=== PATIENT | female | born 1975 | race Caucasian/White ===

== ENCOUNTER 2021-06-08 21:55 | Emergency (ER) | payer MEDICAID, OTHER ==
[~2021-06-08] VITALS: Ht 157.5 cm; Wt 59.0 kg
[2021-06-08 22:04] VITALS: BP 177/95
== END 2021-06-09 03:15 | disposition left against medical advice (07) ==
LOC: ER 21:55
DX: R07.9 Chest pain, unspecified (principal); R06.02 Shortness of breath; Z53.21 Procedure and treatment not carried out due to patient leaving prior to being seen by health care provider
CPT/HCPCS: 93005

== ENCOUNTER 2021-07-06 09:04 | Emergency (ER) | payer MEDICAID, OTHER ==
[~2021-07-06] VITALS: Ht 162.6 cm; Wt 59.0 kg
[2021-07-06 09:07] VITALS: BP 156/91
== END 2021-07-06 10:12 | disposition left against medical advice (07) ==
LOC: ER 09:04
DX: J02.9 Acute pharyngitis, unspecified (principal); R05.9 Cough, unspecified; Z53.21 Procedure and treatment not carried out due to patient leaving prior to being seen by health care provider

== ENCOUNTER → 2021-12-21 00:03 | Emergency (ER) | payer MEDICAID | END | disposition left against medical advice (07) | LOC: ER 00:03 | DX: I10 Essential (primary) hypertension (principal); Z53.21 Procedure and treatment not carried out due to patient leaving prior to being seen by health care provider ==

== ENCOUNTER 2022-02-08 00:24 | Emergency (ER) | payer MEDICAID ==
[~2022-02-08] VITALS: Ht 162.6 cm; Wt 59.0 kg
[2022-02-08 01:33] VITALS: BP 180/110
== END 2022-02-08 04:34 | disposition left against medical advice (07) ==
LOC: EDUNIT# 00:24 → ER 00:24 → EDBD 00:24 → ER 04:34
DX: F43.9 Reaction to severe stress, unspecified (principal); Z53.21 Procedure and treatment not carried out due to patient leaving prior to being seen by health care provider

== ENCOUNTER 2022-02-08 08:08 | Emergency (ER) | payer MEDICAID ==
[~2022-02-08] VITALS: Ht 160 cm; Wt 55.9 kg
[2022-02-08 08:20] VITALS: BP 190/90
[2022-02-08 09:44] LABS: Alcohol, Urine < 3.0 mg/dL (0-10); Amphetamine Screen, Urine NEGATIVE (NEGATIVE); Barbiturate Scree,Urine NEGATIVE (NEGATIVE); Benzodiazephine Screen, Urine NEGATIVE (NEGATIVE); Cannabinoid Screen, Urine NEGATIVE (NEGATIVE); Cocaine Screen, Urine NEGATIVE (NEGATIVE); Opiate Scree,Urine NEGATIVE (NEGATIVE); Phencyclidine Screen, Urine NEGATIVE (NEGATIVE)
[2022-02-08 09:51] LABS: Basophils # (auto) 0 10 ^3/uL (0-0.2); Basophils % (auto) 0.9 % (0.0-2.0); Hemoglobin 9.4 g/dL (12.2-16.2); Monocytes # (auto) 0.3 10 ^3/uL (0-1.3); Neutrophils # (auto) 3.7 10 ^3/uL (1.6-8.6)
[2022-02-08 09:53] LABS: Eosinophils # (auto) 0 10 ^3/uL (0-0.8); Eosinophils % (auto) 0.9 % (0.0-7.0); Hematocrit 32.5 % (36.0-46.0); Lymphocytes % (auto) 19.8 % (10.0-50.0); Mean Corpuscular Hemoglobin 17.7 pg (28.0-32.0); Mean Corpuscular Hgb Conc. 28.8 g/dL (32.0-36.0); Mean Corpuscular Volume 61.5 fL (80.0-100.0); Neutrophils % (auto) 72.4 % (37.0-80.0); Red Blood Cells 5.28 10^6/uL (4.0-5.20); Red Cell Distribution Width 20.5 % (11.8-14.3); White Blood Cell 5.1 10^3/uL (4.4-10.8)
[2022-02-08 09:59] LABS: Urine Bacteria NONE SEEN /hpf (None Seen); Urine Blood Negative /uL (Negative); Urine Specific Gravity 1.037 (1.001-1.035); Urine WBC 2 /hpf (0 - 5)
[2022-02-08 10:07] LABS: Albumin 3.3 g/dL (3.4-5.0); Calcium 8.7 mg/dL (8.5-10.1); Potassium 3.2 mmol/L (3.5-5.1)
[2022-02-08 10:10] LABS: BUN/Creatinine Ratio 19.8; Bilirubin, Total 0.4 mg/dL (0.2-1.0); Total Protein 6.9 g/dL (6.4-8.2)
== END 2022-02-09 07:42 | disposition left against medical advice (07) ==
LOC: ER 08:08
DX: R45.851 Suicidal ideations (principal); F32.9 Major depressive disorder, single episode, unspecified; F41.9 Anxiety disorder, unspecified; F17.210 Nicotine dependence, cigarettes, uncomplicated; Z20.822 Contact with and (suspected) exposure to COVID-19
CPT/HCPCS: 36415; 80053; 80307; 81001; 81025; 85025

== ENCOUNTER 2022-06-05 23:26 | Emergency (ER) | payer MEDICAID ==
[~2022-06-05] VITALS: Ht 165.1 cm; Wt 70.0 kg
[2022-06-05 23:35] VITALS: BP 168/100
[2022-06-06 00:02] LABS: Basophils # (auto) 0.1 10 ^3/uL (0-0.2); Basophils % (auto) 1.2 % (0.0-2.0); Eosinophils # (auto) 0.1 10 ^3/uL (0-0.8); Eosinophils % (auto) 1.5 % (0.0-7.0); Hematocrit 27.5 % (36.0-46.0); Lymphocytes # (auto) 1.6 10 ^3/uL (0.4-5.4); Lymphocytes % (auto) 24.1 % (10.0-50.0); Mean Corpuscular Hemoglobin 17.8 pg (28.0-32.0); Mean Corpuscular Hgb Conc. 29.1 g/dL (32.0-36.0); Mean Corpuscular Volume 61.2 fL (80.0-100.0); Monocytes # (auto) 0.5 10 ^3/uL (0-1.3); Monocytes % (auto) 7.8 % (0.0-12.0); Neutrophils # (auto) 4.4 10 ^3/uL (1.6-8.6); Neutrophils % (auto) 65.4 % (37.0-80.0); Red Blood Cells 4.49 10^6/uL (4.0-5.20); White Blood Cell 6.7 10^3/uL (4.4-10.8)
[2022-06-06 00:05] LABS: Red Cell Distribution Width 20.1 % (11.8-14.3)
[2022-06-06 00:09] LABS: Albumin 3.4 g/dL (3.4-5.0); BUN/Creatinine Ratio 25.5; Calcium 8.8 mg/dL (8.5-10.1); Potassium 3.3 mmol/L (3.5-5.1)
[2022-06-06 00:12] LABS: Bilirubin, Total 0.3 mg/dL (0.2-1.0); Total Protein 6.5 g/dL (6.4-8.2)
[2022-06-06 00:40] LABS: INR 0.92 (0.9-1.15); Partial Thromboplastin Time 27.8 sec (24.6-33.4)
== END 2022-06-06 03:35 | disposition left against medical advice (07) ==
LOC: EDBD 23:26 → ER 23:26
DX: R45.851 Suicidal ideations (principal); I10 Essential (primary) hypertension; E11.9 Type 2 diabetes mellitus without complications; J45.909 Unspecified asthma, uncomplicated; Z88.8 Allergy status to other drugs, medicaments and biological substances; Z59.00 Homelessness unspecified
CPT/HCPCS: 36415; 71045; 80053; 83735; 83880; 84484; 85025; 85610; 85730; 93005